=== PATIENT | female | born 1970 | race Caucasian/White ===

== ENCOUNTER → 2016-11-06 | Outpatient (CLI) | payer OTHER ==
--- NOTE | 2016-11-06 10:07 | MR ---
EXAMINATION TYPE: MR lumbar spine wo con DATE OF EXAM: 11/06/2016 9:55 AM COMPARISON: NONE HISTORY: Low back pain, and leg pain TECHNIQUE: Multiplanar, multisequence images of the lumbar spine were acquired. L1-L2: Normal disc appearance without desiccation. No herniation, protrusion or disc bulging. No ca nal stenosis is present. Foramina are patent bilaterally. L2-L3: Normal disc appearance without desiccation. No herniation, protrusion or disc bulging. No ca nal stenosis is present. Foramina are patent bilaterally. L3-L4: Normal disc appearance without desiccation. No herniation, protrusion or disc bulging. No ca nal stenosis is present. Foramina are patent bilaterally. L4-L5: Small central posterior disc protrusion. There is contact of the anterior thecal sac. No signi ficant foraminal encroachment or central stenosis. Facet arthropathy changes present with hypertrophy of the ligamentum flavum causing some posterior lateral aspect of the thecal sac. L5-S1: Small central posterior disc herniation may contact the proximal S1 nerve roots left greater than right. There is some facet arthropathy change. There may be some encroachment on the lateral rec esses left greater than right. Circumferential extension endplate disc complex encroaches upon the ne ural foramina bilaterally right greater than left. No significant central canal stenosis Lumbar segments are intact. No paraspinal masses are identified. Conus medullaris has a normal appe arance. There is loss of disc height and signal at L5-S1, endplate discogenic marrow signal change wi th associated spondylosis, loss of disc height and signal present to a lesser extent at L4-5. Cortica l cyst is associated with the right kidney. Suspect nerve sheath diverticulum at the S2 level on the left. IMPRESSION: Degenerative disc disease and facet arthropathy, foraminal encroachment as described.
== END | disposition home or self-care (01) ==
LOC: RADMRIMAIN 09:20
PROVIDERS: ATTEND Psychiatry & Neurology Pain Medicine
DX: M51.36 Other intervertebral disc degeneration, lumbar region (principal); M46.86 Other specified inflammatory spondylopathies, lumbar region
CPT/HCPCS: 72148

== ENCOUNTER → 2018-03-28 | Outpatient (CLI) | payer OTHER | END | disposition home or self-care (01) | LOC: RADMRIMAIN 13:03 | PROVIDERS: ATTEND Nurse Practitioner Acute Care | DX: Z53.9 Procedure and treatment not carried out, unspecified reason (principal) ==

== ENCOUNTER → 2018-06-11 | Outpatient (CLI) | payer OTHER ==
--- NOTE | 2018-06-12 21:09 | MR ---
MRI CERVICAL SPINE: CLINICAL HISTORY: Cervicalgia per order. Headache with numbness into arms and hands and shoulder pain , pain and numbness into arms and fingers for several years per patient. TECHNIQUE: Multiplanar, multisequence imaging of the cervical spine is performed without IV contrast. COMPARISON: MRI cervical spine November 04, 2015. FINDINGS: Sagittal images of the cervical spine show the craniocervical junction to remain within nor mal limits. The cervical and upper thoracic spinal cord is normal in course, caliber, and signal. Co patricio images redemonstrate a levoconvex scoliotic curvature centered in the upper thoracic spine. The re is persistent mild disc space narrowing with posterior disc herniation C5-C6 level effacing anteri or thecal sac, disc herniation is actually slightly less prominent versus prior. New small disc herni ation C6-C7 level is noted sagittal image 6 on current study. The vertebral body and intravertebral disk heights otherwise are normal. The bone marrow signal intensity is within normal limits. No sign ificant spurring is seen. Axial images show the C2-C3, C3-C4, and C4-C5 levels all to appear within normal limits. Axial images at the C5-C6 level shows broad-based bilateral paracentral disc protrusion effacing ante rolateral thecal sac and causing asymmetric mild to moderate left-sided neural foraminal narrowing. R ight-sided neural foramen is patent. Axial images appear fairly similar to prior. Axial images at C6-C7 levels show new right paracentral disc protrusion mildly facing anterior thecal sac, bilateral neural foramina are patent. Axial images at C7-T1 levels are felt within normal limits. IMPRESSION: Levoconvex scoliotic positioning centered in the upper thoracic spine with stable disc he rniation C5-C6 level and new smaller disc herniation C6-C7 level noted.
== END | disposition home or self-care (01) ==
LOC: RADMRIMAIN 12:14
PROVIDERS: ATTEND Nurse Practitioner Acute Care
DX: M50.222 Other cervical disc displacement at C5-C6 level (principal); M41.84 Other forms of scoliosis, thoracic region; Z88.5 Allergy status to narcotic agent; Z88.6 Allergy status to analgesic agent
CPT/HCPCS: 72141

== ENCOUNTER 2019-04-24 14:21 | Emergency (ER) | payer OTHER ==
[2019-04-24 14:49] VITALS: RESP 18
--- NOTE | 2019-04-24 16:16 | ED ---
General Adult HPI - General Chief complaint: Recheck/Abnormal Lab/Rx Stated complaint: body rash Time Seen by Provider: 04/24/19 15:36 Source: patient, RN notes reviewed Mode of arrival: ambulatory Limitations: no limitations - History of Present Illness Initial comments: 49 year old female presents to the emergency department for a chief complaint of combination with left breast implant. Apparently patient had a saline breast implant done approximately 15 years ago. States that she had a breast exam performed about one week ago and since then has noticed that her left breast seems to be decreasing in size. States that today it seems flat. Patient thinks her implant was ruptured. Patient denies any pain or redness. Denies any fever. States she does have a sunburn with small red dots on her arms and legs. Denies any rash over the left breast.Patient has no other complaints at this time including shortness of breath, chest pain, abdominal pain, nausea or vomiting, headache, or visual changes. - Related Data Home Medications Medication Instructions Recorded Confirmed Albuterol Inhaler [Ventolin Hfa 1 - 2 puff INHALATION RT-Q6H PRN 03/29/16 04/24/19 Inhaler] Cyclobenzaprine [Flexeril] 10 mg PO TID 03/29/16 04/24/19 Ipratropium [place] [Atrovent Hfa] 2 puff INHALATION RT-QID 08/11/16 04/24/19 Albuterol Nebulized [Ventolin 2.5 mg INHALATION RT-Q6H 04/24/19 04/24/19 Nebulized] HYDROmorphone [Dilaudid] 2 mg PO BID PRN 04/24/19 04/24/19 Allergies Allergy/AdvReac Type Severity Reaction Status Date / Time acetaminophen [From [place]] Allergy Unknown Verified 04/24/19 14:49 aspirin Allergy Unknown Verified 04/24/19 14:49 clindamycin Allergy Unknown Verified 04/24/19 14:49 codeine Allergy Unknown Verified 04/24/19 14:49 duloxetine HCl Allergy Unknown Verified 04/24/19 14:49 [From Cymbalta] hydrocodone [From [place]] Allergy Unknown Verified 04/24/19 14:49 tomato Allergy Rash/Hives Verified 04/24/19 16:00 Review of Systems ROS Statement: Those systems with pertinent positive or pertinent negative responses have been documented in the HPI. ROS Other: All systems not noted in ROS Statement are negative. Past Medical History Past Medical History: Asthma, COPD, Seizure Disorder Additional Past Medical History / Comment(s): back and neck problems History of Any Multi-Drug Resistant Organisms: None Reported Past Surgical History: Breast Surgery, Section Additional Past Surgical History / Comment(s): uterine cyst, breast implants Past Psychological History: Anxiety, Depression Smoking Status: Never smoker Past Alcohol Use History: None Reported Past Drug Use History: Marijuana General Exam Limitations: no limitations General appearance: alert, in no apparent distress Head exam: Present: atraumatic, normocephalic, normal inspection Eye exam: Present: normal appearance, PERRL, EOMI. Absent: scleral icterus, conjunctival injection, periorbital swelling ENT exam: Present: normal exam, mucous membranes moist Neck exam: Present: normal inspection, full ROM. Absent: tenderness, meningismus, lymphadenopathy Respiratory exam: Present: normal lung sounds bilaterally, other (His breast asymmetry. Left breast appears significantly flatter than right breast, likely secondary to saline implant rupture). Absent: respiratory distress, wheezes, rales, rhonchi, stridor Cardiovascular Exam: Present: regular rate, normal rhythm, normal heart sounds. Absent: systolic murmur, diastolic murmur, rubs, gallop, clicks Neurological exam: Present: alert, oriented X3, CN II-XII intact Psychiatric exam: Present: normal affect, normal mood Course Vital Signs 04/24/19 14:44 Temperature 98.8 F Pulse Rate 78 Respiratory 18 Rate Blood Pressure 171/107 O2 Sat by Pulse 98 Oximetry Medical Decision Making - Medical Decision Making 49-year-old female presents for a chief complaint of possible ruptured left breast implant. Patient had a saline implant placed 15 years ago. This did rupture apparently well during a breast exam. States she had a slow leakage over the last several days. She called the surgical center on Wednesday they told her to follow up with primary care. However when she called the primary care o ffice the animal husbandry teacher told her just to come to the emergency department. No redness or pain over the left breast. No evidence of infection. Discussed with Dr. Cantor, at this time he recommended outpatient follow-up for this. Patient will refer for to multiple surgeons. Discussed with her that we may not replace the implant in the she speaks with a plastic surgeon. Discussed following up with primary care as well. I also talked with her about risk of infection which she will monitor for. Patient also hypertensive, refusing any blood pressure medication states she does not like blood pressure medications and is aware she has hypertension. Disposition Clinical Impression: Deflation of saline-filled breast implant Disposition: HOME SELF-CARE Condition: Good Instructions (If sedation given, give patient instructions): Acute Rash (ED) Additional Instructions: Please follow up with surgery in 1-2 days. If you develop any redness over the left breast, pain, fevers, or any other worsening symptoms return to the emergency department. Is patient prescribed a controlled substance at d/c from ED?: No Referrals: Felicity Kimble MD [Primary Care Provider] - 1-2 days Rio White MD [STAFF PHYSICIAN] - 1-2 days Melodie Flores MD [STAFF PHYSICIAN] - 1-2 days Time of Disposition: 16:14
[2019-04-24 16:30] VITALS: BP 167/102; PULSE 65; TEMP 97.1
== END 2019-04-24 16:30 | disposition home or self-care (01) ==
LOC: EC 14:21
DX: T85.43XA Leakage of breast prosthesis and implant, initial encounter (principal); Z53.29 Procedure and treatment not carried out because of patient's decision for other reasons; J44.9 Chronic obstructive pulmonary disease, unspecified; Z79.899 Other long term (current) drug therapy; Z88.5 Allergy status to narcotic agent; Z88.6 Allergy status to analgesic agent; Z88.1 Allergy status to other antibiotic agents; Z88.8 Allergy status to other drugs, medicaments and biological substances; Z91.018 Allergy to other foods; Z98.82 Breast implant status
CPT/HCPCS: 99282

== ENCOUNTER 2019-09-27 13:27 | Emergency (ER) | payer OTHER ==
[2019-09-27 13:36] VITALS: TEMP 98
[2019-09-27] MEDS ORDERED: HYDROmorphone 0.5 MG/0.5 ML SYRINGE IVP STA (13:40)
[2019-09-27 14:02] LABS: Basophils % (A) 1 %; Eosinophils % (A) 1 %; HCT 40.5 % (34.0-46.0); HGB 13.6 gm/dL (11.4-16.0); Lymphocytes # (A) 1.8 k/uL (1.0-4.8); Lymphocytes % (A) 26 %; MCHC 33.5 g/dL (31.0-37.0); MCV 89.5 fL (80.0-100.0); Monocytes # (A) 0.3 k/uL (0-1.0); Monocytes % (A) 5 %; Neutrophils # (A) 4.5 k/uL (1.3-7.7); Neutrophils % (A) 66 %; Platelet Count 161 k/uL (150-450); RBC 4.53 m/uL (3.80-5.40); RDW 12.9 % (11.5-15.5); WBC 6.7 k/uL (3.8-10.6)
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
[2019-09-27 14:13] LABS: ALT 14 U/L (9-52); AST 15 U/L (14-36); African American GFR (CKD) >90 (>60 ml/min/1.73 sqM); Albumin 4.2 g/dL (3.5-5.0); Alkaline Phosphatase 54 U/L (38-126); Anion Gap 8 mmol/L; Blood Urea Nitrogen 12 mg/dL (7-17); Calcium 9.3 mg/dL (8.4-10.2); Carbon Dioxide 24 mmol/L (22-30); Chloride 107 mmol/L (98-107); Glucose 115 mg/dL (74-99); Non-African American GFR(CKD) >90 (>60 ml/min/1.73 sqM); Potassium 3.6 mmol/L (3.5-5.1); Sodium 139 mmol/L (137-145); Total Bilirubin 0.5 mg/dL (0.2-1.3); Total Protein 6.7 g/dL (6.3-8.2)
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
[2019-09-27 15:34] VITALS: BP 157/101; PULSE 71; RESP 16
== END 2019-09-27 15:25 | disposition home or self-care (01) ==
LOC: EC 13:27
DX: S49.91XA Unspecified injury of right shoulder and upper arm, initial encounter (principal); S09.93XA Unspecified injury of face, initial encounter; S29.9XXA Unspecified injury of thorax, initial encounter; S39.91XA Unspecified injury of abdomen, initial encounter; S39.93XA Unspecified injury of pelvis, initial encounter; J44.1 Chronic obstructive pulmonary disease with (acute) exacerbation; Z79.51 Long term (current) use of inhaled steroids; Z88.6 Allergy status to analgesic agent; Z88.2 Allergy status to sulfonamides; Z88.1 Allergy status to other antibiotic agents; Z91.018 Allergy to other foods; V49.40XA Driver injured in collision with unspecified motor vehicles in traffic accident, initial encounter; Y92.410 Unspecified street and highway as the place of occurrence of the external cause
CPT/HCPCS: 36415; 80053; 85025; 72125; 70450; 71260; 74177; 99285; 96374; J1170; Q9967

== ENCOUNTER → 2019-12-04 | Outpatient (CLI) | payer OTHER ==
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
== END | disposition home or self-care (01) ==
LOC: RADMRIMAIN 19:02
PROVIDERS: ATTEND Urology
DX: E27.9 Disorder of adrenal gland, unspecified (principal); R10.9 Unspecified abdominal pain
CPT/HCPCS: 74183; A9585

== ENCOUNTER → 2021-03-11 | Outpatient (CLI) | payer OTHER ==
--- NOTE | 2021-03-11 15:47 | XR ---
EXAMINATION TYPE: XR tibia fibula RT, XR ankle limited RT DATE OF EXAM: 03/11/2021 CLINICAL HISTORY: Right leg and ankle pain. TECHNIQUE: Two views of the right leg are obtained. 2 views right ankle. COMPARISON: Right ankle x-ray May 22, 2013. FINDINGS: There is no acute fracture or dislocation seen in the right tibia or fibula. Right knee ashley int shows mild tricompartment joint space loss. The overlying soft tissue appears unremarkable. Images of right ankle show no acute fracture or dislocation. Ankle mortise symmetry is preserved. Ove rlying soft tissue is unremarkable. No significant change from prior. IMPRESSION: As above.
== END | disposition home or self-care (01) ==
LOC: RADXRMAIN 15:23
PROVIDERS: ATTEND Physician Assistant
DX: M25.571 Pain in right ankle and joints of right foot (principal); M79.661 Pain in right lower leg

== ENCOUNTER → 2021-11-27 | Outpatient (CLI) | payer OTHER ==
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
== END | disposition home or self-care (01) ==
LOC: RADCTMAIN 17:10
PROVIDERS: ATTEND Psychiatry & Neurology Neurology
DX: M51.37 Other intervertebral disc degeneration, lumbosacral region (principal); M47.816 Spondylosis without myelopathy or radiculopathy, lumbar region; M99.73 Connective tissue and disc stenosis of intervertebral foramina of lumbar region
CPT/HCPCS: 72132; Q9967

== ENCOUNTER → 2024-03-07 | Outpatient (CLI) | payer OTHER ==
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
== END | disposition home or self-care (01) ==
LOC: RADMRIMAIN 16:48
PROVIDERS: ATTEND Neurological Surgery
DX: M47.812 Spondylosis without myelopathy or radiculopathy, cervical region (principal); M50.30 Other cervical disc degeneration, unspecified cervical region; G95.0 Syringomyelia and syringobulbia; R26.89 Other abnormalities of gait and mobility; R20.0 Anesthesia of skin
CPT/HCPCS: 72141; 72146

== ENCOUNTER → 2024-05-22 | Outpatient (CLI) | payer OTHER ==
--- NOTE | 2024-05-22 16:07 | US ---
EXAMINATION TYPE: US kidneys/renal and bladder DATE OF EXAM: 05/22/2024 COMPARISON: 09/27/2019 CT. MRI 12/04/2019 CLINICAL INDICATION: Female, 54 years old with history of N28.1 CYST OF KIDNEY, ACQUIRED; known cyst on the right EXAM MEASUREMENTS: Right Kidney: 10.3 x 5.0 x 4.6 cm Left Kidney: 10.4 x 4.2 x 5.0 cm Right Kidney: prominent renal pelvis versus mild hydro, inferior pole cyst =2.0 x 2.3 x 1.6cm Left Kidney: prominent renal pelvis versus mild hydro Bladder: wnl There is no evidence for hydronephrosis at this point in time. No nephrolithiasis is seen. No melissa s are identified. The urinary bladder is anechoic. Bilateral ureteral jets are seen. IMPRESSION: 1. No evidence for acute process. 2. Right renal cyst. 3. Extrarenal pelves bilaterally is stable back to 2019.
== END | disposition home or self-care (01) ==
LOC: RADUSWWP 10:35
PROVIDERS: ATTEND Urology
DX: N28.1 Cyst of kidney, acquired (principal)
CPT/HCPCS: 76770

== ENCOUNTER 2025-05-09 21:04 | Emergency (ER) | payer OTHER ==
--- NOTE | 2025-05-09 23:01 | ED ---
General Adult HPI - General Chief complaint: Extremity Injury, Lower Stated complaint: Left foot injury Time Seen by Provider: 05/09/25 21:09 Source: patient, RN notes reviewed Mode of arrival: wheelchair Limitations: no limitations, physical limitation - History of Present Illness Initial comments: 55-year-old female presents to the emergency department for evaluation of left foot pain. Patient states that she dropped a dresser drawer on her foot while attempting to move it. She states that since then she has had pain in the left midfoot. She reports that it is worse with ambulation. She does report taking her home medication for pain with minimal relief. - Related Data Home Medications Medication Instructions Recorded Confirmed Albuterol Inhaler [Ventolin Hfa 1 - 2 puff INHALATION RT-Q6H PRN 03/29/16 04/24/19 Inhaler] Cyclobenzaprine [Flexeril] 10 mg PO TID 03/29/16 04/24/19 Ipratropium [place] [Atrovent Hfa] 2 puff INHALATION RT-QID 08/11/16 04/24/19 Albuterol Nebulized [Ventolin 2.5 mg INHALATION RT-Q6H 04/24/19 04/24/19 Nebulized] HYDROmorphone [Dilaudid] 2 mg PO BID PRN 04/24/19 04/24/19 Allergies Allergy/AdvReac Type Severity Reaction Status Date / Time acetaminophen [From Edgar] Allergy Unknown Verified 05/09/25 21:06 aspirin Allergy Unknown Verified 05/09/25 21:06 clindamycin Allergy Unknown Verified 05/09/25 21:06 codeine Allergy Unknown Verified 05/09/25 21:06 duloxetine HCl Allergy Unknown Verified 05/09/25 21:06 [From Cymbalta] hydrocodone [From Edgar] Allergy Unknown Verified 05/09/25 21:06 tomato Allergy Rash/Hives Verified 05/09/25 21:06 Review of Systems ROS Statement: Those systems with pertinent positive or pertinent negative responses have been documented in the HPI. ROS Other: All systems not noted in ROS Statement are negative. Past Medical History Past Medical History: Asthma, COPD, Seizure Disorder Additional Past Medical History / Comment(s): back and neck problems History of Any Multi-Drug Resistant Organisms: None Reported Past Surgical History: Back Surgery, Breast Surgery, Section Additional Past Surgical History / Comment(s): uterine cyst, breast implants Past Psychological History: Anxiety, Depression Smoking Status: Never smoker Past Alcohol Use History: None Reported Past Drug Use History: Marijuana General Exam Limitations: physical limitation General appearance: alert, in no apparent distress Head exam: Present: atraumatic, normocephalic, normal inspection Extremities exam: Present: full ROM, tenderness (left medial midfoot), normal capillary refill, other (DP and PT pulses 2+). Absent: pedal edema, joint swelling, calf tenderness Neurological exam: Present: alert, oriented X3 Psychiatric exam: Present: normal affect, normal mood Skin exam: Present: warm, dry, intact, normal color. Absent: rash Course Vital Signs 05/09/25 05/09/25 21:06 23:55 Temperature 98.3 F 97.8 F Pulse Rate 76 72 Respiratory 16 18 Rate Blood Pressure 138/89 131/79 O2 Sat by Pulse 99 99 Oximetry Medical Decision Making - Medical Decision Making Was pt. sent in by a medical professional or institution (, PA, [facility], urgent care, hospital, or snf...) When possible be specific @ -No Did you speak to anyone other than the patient for history (EMS, parent, family, police, friend...)? What history was obtained from this source @ -No Did you review nursing and triage notes (agree or disagree)? Why? @ -I reviewed and agree with nursing and triage notes Were old charts reviewed (outside hosp., previous admission, EMS record, old EKG, old radiological studies, urgent care reports/EKG's, snf records)? Report findings @ -No old charts were reviewed Differential Diagnosis (chest pain, altered mental status, abdominal pain women, abdominal pain men, vaginal bleeding, weakness, fever, dyspnea, syncope, headache, dizziness, GI bleed, back pain, seizure, CVA, palpatations, mental health, musculoskeletal)? @ -Differential Musculoskeletal Muscular strain, contusion, ligament sprain, fracture, arthritis, septic arthritis, bursitis, cellulitis, muscle spasm, nerve compression, DVT, arterial occlusion, herpes zoster, electrolyte abnormality, tumor.... This is not meant to be in all inclusive list EKG interpreted by me (3pts min.). @ -None X-rays interpreted by me (1pt min.). @ -X-ray of the left foot reveals no evidence of acute fracture or dislocation, possible foreign body in the first webspace measuring [address] interpreted by me (1pt min.). @ -None done U/S interpreted by me (1pt. min.). @ -None done What testing was considered but not performed or refused? (CT, X-rays, U/S, labs)? Why? @ -None What meds were considered but not given or refused? Why? @ -None Did you discuss the management of the patient with other professionals (professionals i.e. , PA, [facility] [employer], lab, RT, psych nurse, social secretary, felt puller, teacher, targeting acquisition officer, case planner)? Give summary @ -No Was smoking cessation discussed for >3mins.? @ -No Was critical care preformed (if so, how long)? @ -No Were there social determinants of health that impacted care today? How? (Homelessness, low income, unemployed, alcoholism, drug addiction, transportation, low edu. Level, literacy, decrease access to med. care, long-term, rehab)? @ -No Was there de-escalation of care discussed even if they declined (Discuss DNR or withdrawal of care, Hospice)? DNR status @ -No What co-morbidities impacted this encounter? (DM, HTN, Smoking, COPD, CAD, Cancer, CVA, ARF, Chemo, Hep., AIDS, mental health diagnosis, sleep apnea, morbid obesity)? @ -None Was patient admitted / discharged? Hospital course, mention meds given and route, prescriptions, significant lab abnormalities, going to OR and other pertinent info. @ -Discharge. Patient presented to the emergency department for foot pain. XR obtained revealing no acute fracture or dislocation. Foreign body visualized in first webspace measuring 2 mm. Patient does not have any open wound in that region. Patient will be provided postop shoe. Advised podiatry follow-up. She is understanding agreeable plan. Patient stable at time of discharge. Case discussed with Dr. Parsons Undiagnosed new problem with uncertain prognosis? @ -No Drug Therapy requiring intensive monitoring for toxicity (Heparin, Nitro, Insulin, Cardizem)? @ -No Were any procedures done? @ -No Diagnosis/symptom? @ -Foot contusion Acute, or Chronic, or Acute on Chronic? @ -Acute Uncomplicated (without systemic symptoms) or Complicated (systemic symptoms)? @ -Uncomplicated Side effects of treatment? @ -No Exacerbation, Progression, or Severe Exacerbation? @ -No Poses a threat to life or bodily function? How? (Chest pain, [place], [place], pneumonia, PE, COPD, DKA, ARF, appy, cholecystitis, CVA, Diverticulitis, Homicidal, Suicidal, threat to staff... and all critical care pts) @ -No Disposition Clinical Impression: Foot contusion Disposition: HOME SELF-CARE Condition: Stable Instructions (If sedation given, give patient instructions): Foot Contusion (ED) Additional Instructions: Rest, ice, elevate the foot. Follow-up with your primary care provider. Return to the emergency department for new or worsening symptoms. Is patient prescribed a controlled substance at d/c from ED?: No Referrals: Natasha Gonzalez MD [Primary Care Provider] - 1-2 days Angelica Florentino DPM [STAFF PHYSICIAN] - 1-2 days
--- NOTE | 2025-05-09 23:24 | XR ---
EXAM: XR Left Foot Complete, 3 or More Views CLINICAL HISTORY: ITS.REASON XR Reason: pain TECHNIQUE: Frontal, lateral and oblique views of the left foot. COMPARISON: No relevant prior studies available. FINDINGS: Bones/joints: No acute fracture or malalignment. Soft tissues: Radiopaque foreign body along the skin surface in the first webspace measuring 2 mm. IMPRESSION: 1. No acute fracture or malalignment. 2. Radiopaque foreign body along the skin surface in the first webspace measuring 2 mm.
[2025-05-09 23:59] VITALS: BP 131/79; PULSE 72; RESP 18; TEMP 97.8
== END 2025-05-09 23:59 | disposition home or self-care (01) ==
LOC: EC 21:04
DX: S90.32XA Contusion of left foot, initial encounter (principal); Z88.5 Allergy status to narcotic agent; Z91.018 Allergy to other foods; Z88.8 Allergy status to other drugs, medicaments and biological substances; W20.8XXA Other cause of strike by thrown, projected or falling object, initial encounter
CPT/HCPCS: 99283